=== PATIENT | female | born 1995 | race Two or more races ===

== ENCOUNTER 2025-02-04 16:18 | Inpatient (IN) | payer MEDICAID, OTHER ==
[~2025-02-04] VITALS: Ht 157.5 cm; Wt 124.7 kg
[2025-02-04] MEDS: LIDOCAINE 2%HCL (LOCAL ANESTH.) INJ 20ML MDV ONE (16:38)
[2025-02-04] MEDS: LIDOCAINE 2%HCL (LOCAL ANESTH.) INJ 10ml MDV ONE (16:38)
[2025-02-04] MEDS: KETOROLAC TROMETH 30 MG/ML 1ML VIAL ONE (16:38)
[2025-02-04] MEDS: DEXTROSE 10% 250 ML IV ONE (16:48)
--- NOTE | 2025-02-04 16:52 | ED.PDOC ---
NETWORK OPERATIONS LEAD HPI Comments 29 year old female presents to the ED via EMS with a chief complaint of s pontaneous onset today (02/04/25). Per EMS, patient had a spontaneous , mid- was present, patient was 40.5 weeks, placenta was not delivered. Upon ED arrival, patient was stable, was taken to L&D. Father states patient, P: 2, had no complications during . No other symptoms or modifying factors present at this time. Time Seen by MD: 16:09 Reviewed Notes: Medications Information Source: Patient, Emergency Med Personnel, Spouse Mode of Arrival: EMS Timing: Minutes Prehospital treatment: None Severity: Moderate Past Medical History PAST MEDICAL HISTORY: Denies Surgical History: Denies all surgeries PAINTINGS RESTORER History: No Pertinent PAINTINGS RESTORER History Family History Family History: Reviewed,noncontributory to illness, No family hx of Cancer, No family hx of DM, No family hx of Heart robert, No family hx of HTN, No family hx ofKidney robert, No family hx of Liver robert, No family hx of Lung robert, No family hx of Stroke Social History Smoker: Non-Smoker Alcohol: Denies ETOH Use Drugs: Denies Drug Use Lives In: Home Constitutional: denies: chills, diaphoresis, fatigue, fever, malaise, sweats, weakness, others EENTM: denies: blurred vision, double vision, ear bleeding, ear discharge, ear drainage, ear pain, ear ringing, eye pain, eye redness, hearing loss, mouth pain, mouth swelling, nasal discharge, nose bleeding, nose congestion, nose pain, photophobia, tearing, throat pain, throat swelling, voice changes, others Respiratory: denies: cough, hemoptysis, orthopnea, SOB at rest, shortness of breath, SOB with excertion, stridor, wheezing, others Cardiovascular: denies: chest pain, dizzy spells, diaphoresis, Dyspnea on exertion, edema, irregular heart beat, left arm pain, lightheadedness, palpitations, PND, syncope, others Gastrointestinal: denies: abdomen distended, abdominal pain, blood streaked bowels, constipated, diarrhea, dysphagia, difficulty swallowing, hematemesis, melena, nausea, poor appetite, poor fluid intake, rectal bleeding, rectal pain, vomiting, others Genitourinary: reports: others (spontaneous ); denies: abnormal vagina bleeding, burning, dyspareunia, dysuria, flank pain, frequency, hematuria, incontinence, pain, , vagina discharge, urgency Neurological: denies: dizziness, fainting, headache, left sided numbness, left sided weakness, numbness, paresthesia, pre-existing deficit, right sided numbness, right sided weakness, seizure, speech problems, tingling, tremors, weakness, others Musculoskeletal: denies: back pain, gout, joint pain, joint swelling, muscle pain, muscle stiffness, neck pain, others Integumetry: denies: bruises, change in color, change in hair/nails, dryness, laceration, lesions, lumps, rash, wounds, others Allergic/Immunocompromised: denies: Difficulty Healing, Frequent Infections, Hives, Itching, others Hematologic/Lymphatic: denies: anemia, blood clots, easy bleeding, easy bruising, swollen glands, others Endocrine: denies: excessive hunger, excessive sweating, excessive thirst, excessive urination, flushing, intolerance to cold, intolerance to heat, unexplained weight gain, unexplained weight loss, others Psychiatric: denies: anxiety, bipolar disorder, depression, hopeless, panic disorder, schizophrenia, sleepless, suicidal, others All Other Systems: Reviewed and Negative Was a procedure done? Was a procedure done?: No Time of 1ST Reevaluation: 16:39 Reevaluation 1ST: Unchanged Patient Education/Counseling: Diagnosis, Treatment Family Education/Counseling: Diagnosis, Treatment Critical Care Note Critical Care Time?: No Stability Stability form required: No I personally scribed for BAN LEAL MD ([email or web address]) on 02/04/25 at 16:52. Electronically submitted by Yee Avendano ([email or web address]). BAN LEAL MD Feb 04, 2025 16:52
[2025-02-04] MEDS ORDERED: LIDOCAINE 2%HCL (LOCAL ANESTH.) INJ 20ML MDV IJ PRN (17:00)
[2025-02-04 17:14] LABS: Hematocrit 37.8 % (36.0-46.0); Hemoglobin 12.3 g/dL (12.2-16.2); Mean Corpuscular Hemoglobin 27.7 pg (28.0-32.0); Mean Corpuscular Volume 85.3 fL (80.0-100.0); Nucleated Red Blood Cells % 0.1 %
--- NOTE | 2025-02-04 17:14 | DVHHP2 ---
OB CC & HPI Date Date of Admission: Feb 04, 2025 Patient Identification: : 2 Para: 2 EDC: Jan 30, 2025 EGA: 40.5wks Chief Complaints: Reason for admission: other (boa) History of Present Complaints 29yo now delivered at home with quality assurance assistant (Rey Morton LM, CPM) who resolved 14 minute shoulder dystocia (per Praveen HOPKINS report), pt brought in by EMS, placenta undelivered upon arrival. Care of was assumed by ED and seaming machine operator Dr. Bernal. Flakito Crews CNM assumed care of this pt. PNC with home midwives, Rey Morton LM, CPM and Isadora Adams LM, CPM. Pt reports uncomplicated . No records available. OB hx: x1, uncomplicated Past Medical History Cardiac: No pertinent Hx Pulmonary: No pertinent Hx Central Nervous System: No pertinent Hx GI: No pertinent Hx Hemotology/Oncology: No pertinent Hx Hepatobiliary: No pertinent Hx Psychiatric: No pertinent Hx Musculoskeletal: No pertinent Hx Rheumotologic: No pertinent Hx Infectious Disease: No peritnent Hx ENT: No pertinent Hx Renal/: No pertinent Hx Endocrine: No pertinent Hx Dermatology: No pertinent Hx Past Surgical History: No pertinent Hx OB History OB History Care: Good Care (per pt) Obstetrical Complications: None (per pt) Medical Complications: None (per pt) Allergies NKDA Home Meds PNV Family & Social History Family/Social History Past Family/Social History: denies Blood Type: Unknown Rubella: unknown RPR/VDRL: Unknown GBS Status: Unknown HBsAG: Unknown Review of Systems Constitutional: No symptom reported Ears, Nose, & Throat: No symptom reported Eyes: No symptom reported Pulmonary/Respiratory: No symptom reported Cardiovascular: No symptom reported Gastrointestinal: No symptom reported Genitourinary: No symptom reported Musculoskeletal: No symptom reported Skin: No symptom reported Psychiatric: No symptom reported Endocrine: No symptom reported Hemotologic/Lymphatic: No symptom reported OB Admission Exam Physical Exam Vitals: VSS, see CPN HEENT: TMs Normal, Fontanelles Normal, Nasal Mucosa Normal, Eyes non-injected, Oropharynx Normal, PERRLA, Moist Membranes, EOMI Abdomen: Non tender Extremities: Normal Pelvic Exam: placenta undelivered OB Plan Plan Admitting Diagnosis: BOA Plan: Expectant Management Other Plan: Pt taken to L&D for placenta delivery and perineal/fundal assessment. Visit Coding OBGYN Date of Service: Feb 04, 2025 Billing Provider: TRAVIS CREWS CNM NURSE OB Common Visit Codes: [id number] INP/OBS CARE (HIGH) TRAVIS CREWS CNM Feb 04, 2025 17:14
--- NOTE | 2025-02-04 17:25 | LDN2 ---
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 Pt brought in by EMS who had clamped and cut the cord (per Praveen LM report), placenta undelivered upon arrival, cord clamp not secured on the cord between pts legs. Pitocin 10u IM given by RN in right thigh. Intact 3-vessel cord placenta delivered spontaneously, [place], meconium stained. Cord blood collected from placenta and sent to lab since pt does not know her blood type. Pt wants to take placenta home, release consent signed. Patient had no anesthesia. Cervix/vagina inspected (intact) and no perineal/labial lacerations noted. Right periureteral abrasion noted, hemostatic, repaired not needed. Fundus at U, firm, midline, and light lochia. QBL 50ml. VSS. Count correct x2. Patient to care, stable. Visit Coding OBGYN Date of Service: Feb 04, 2025 Billing Provider: TRAVIS FRANZ CNM COMMAND POST SUPERINTENDENT Common Visit Codes: PROCEDURE ONLY COMMAND POST SUPERINTENDENT Procedure Codes: [id number] DEL INCLUDING (placenta delivery only and care) TRAVIS FRANZ CNM Feb 04, 2025 17:25
[2025-02-04 17:32] LABS: Albumin 3.8 g/dL (3.2-4.8); Anion Gap 13 (5-15); BUN/Creatinine Ratio 7.6 (10.0-20.0); Bilirubin, Total 0.3 mg/dL (0.2-1.0); Potassium 3.9 mmol/L (3.5-5.1); Sodium 137 mmol/L (136-145); Total Protein 6.1 g/dL (5.7-8.2)
[2025-02-04 17:40] LABS: Alanine Aminotransferase 145 U/L (7-40); Alkaline Phosphatase 261 U/L (46-116); Blood Urea Nitrogen 6 mg/dL (9-23); Calcium 8.7 mg/dL (8.7-10.4); Carbon Dioxide 16 mmol/L (20-31); Chloride 108 mmol/L (98-107); Glucose 135 mg/dL (74-106)
[2025-02-04 17:48] LABS: INR 0.98 (0.9-1.15); Partial Thromboplastin Time 27.6 SEC (24.5-34.5); Prothrombin Time 10.4 sec (9.3-11.8)
[2025-02-04] MEDS: KETOROLAC TROMETH 30 MG/ML 1ML VIAL IV ONE (18:34)
[2025-02-04 18:45] VITALS: BP 124/63; PULSE 65; RESP 16; TEMP 98.1; O2SAT 99
[2025-02-04] MEDS: ACETAMINOPHEN 325 MG TAB PO PRN (21:35)
[2025-02-04 21:38] LABS: Urine Protein, UAD 1+ (Negative)
[2025-02-04 21:40] LABS: Amphetamine Screen, Urine Neg (NEGATIVE); Barbiturate Scree,Urine Neg (NEGATIVE); Benzodiazephine Screen, Urine Neg (NEGATIVE); Cannabinoid Screen, Urine Neg (NEGATIVE); Cocaine Screen, Urine Neg (NEGATIVE); Opiate Scree,Urine Neg (NEGATIVE); Phencyclidine Screen, Urine Neg (NEGATIVE)
[2025-02-04] MEDS ORDERED: DOCU-94 PO (22:14)
[2025-02-04] MEDS ORDERED: PREN-96 PO (22:14)
[2025-02-04] MEDS ORDERED: IBUP-1456 PO (22:14)
[2025-02-04 23:10] VITALS: BP 105/56; PULSE 76; RESP 16; TEMP 98.2; O2SAT 99
--- NOTE | 2025-02-05 00:36 | DVHDS2 ---
Obstetrics Discharge Summary Obstetrics Discharge Summary Date of Admission: Feb 04, 2025 Date of Discharge: Feb 05, 2025 Reason For Admission: Others (BOA, placenta undelivered) Procedures: Mgmt of Obstetrics Compli (shoulder dystocia at home, resolved prior to arrival at hospital) Intrapartum Procedures: Spontaneous vaginal deliv Procedures: Hct/date: (02/05/25), Hgb/date: (02/05/25) Operative Complicat: None Discharge Diagnosis: Term -Delivered Discharge Information: Activity (as tolerated, no heavy lifting and nothing in the vagina for 6 weeks), Diet (Routine), Medications (Rx sent), Instructions (Routine), Discharge to (Home), Accompanied by (partner), Discarge date (02/05/25) Visit Coding OBGYN Date of Service: Feb 05, 2025 Billing Provider: TRAVIS FRANZ CNM FILES SUPERVISOR Common Visit Codes: [id number]-FME/OBS DISCH DAY <30MIN TRAVIS FRANZ CNM Feb 05, 2025 00:36
--- NOTE | 2025-02-05 00:36 | DVHPN2 ---
Progress Note Date Seen: Feb 05, 2025 Subjective S: bleeding is less, eating food without issues, denies lightheaded/dizziness, pain well controlled with oral medications, no concerns with urinating, passing flatus, no BM yet, ambulating well, pumping breast milk vital signs Vital Sign Date Time Temp Pulse Resp B/P (MAP) Pulse Ox O2 Delivery O2 Flow Rate FiO2 02/04/25 23:10 98.2 76 16 105/56 (72) 99 98.2 02/04/25 17:34 Room Air Total Intake and Output 02/04/25 02/04/25 02/05/25 15:00 23:00 07:00 Output Total 200 ml Balance -200 ml medications Current Medications Medications Dose Ordered Sig/Shiloh Route Start Time Stop Time Status Last Admin Dose Admin Witch Constance 1 pad PRN PRN TOP 02/04/25 17:00 Sodium Lauryl Sulfate 240 ml PRN PRN TOP 02/04/25 17:00 Benzocaine 1 applic PRN PRN TOP 02/04/25 17:00 Lidocaine HCl 20 ml ONCE PRN IJ 02/04/25 17:00 Ibuprofen 600 mg Q6HP PRN PO 02/04/25 23:00 Acetaminophen 650 mg Q6HPRN PRN PO 02/04/25 17:30 02/04/25 21:35 650 MG Prenat Multivit/ Bulk Station Agent/Iron/Folic Ac 1 DAILY PO 02/05/25 10:00 laboratory and microbiology Laboratory Tests 02/04/25 16:40 Test 02/04/25 16:40 Range/Units Serum Glucose 135 H 74-106 mg/dL Objective O: VSS Chest: heart sounds normal and lung sounds clear bilaterally Abd: soft, non-tender, fundus at U/firm/midline, active bowel sounds, no rebound or guarding Perineum: intact, no erythema/edema noted Ext: Non-tender, No edema, 2+ BLE DTRs Lochia: minimal See lab results Assessment/Plan A: 29yo now PPD#1 s/p vaginal delivery Rh+ Rubella immune Pumping breast milk, baby in NICU [facility] P: D/C home today Rx sent to pharmacy precautions and preeclampsia warning signs reviewed F/U with Praveen HOPKINS (OB provider) in 1 wk Plan discussed with: Patient Visit Coding OBGYN Date of Service: Feb 05, 2025 Billing Provider: TRAVIS FRANZ CNM TAG MARKER Common Visit Codes: [id number] INP/OBS CARE(LOW) TRAVIS FRANZ CNM Feb 05, 2025 00:36
[2025-02-05 03:00] VITALS: BP 133/73; PULSE 64; RESP 16; TEMP 98.5; O2SAT 98
[2025-02-05] MEDS: WITCH HAZEL-GLYCERIN PAD TOP PRN (03:04)
[2025-02-05] MEDS: DERMOPLAST 60ML BOTTLE TOP PRN (03:04)
[2025-02-05] MEDS: PHISODERM TOP SOLN 240ML BTL TOP PRN (03:04)
[2025-02-05] MEDS: IBUPROFEN 600 MG TAB PO PRN (03:05)
[2025-02-05 07:00] VITALS: BP 127/65; PULSE 64; RESP 16; TEMP 98; O2SAT 96
[2025-02-05 07:14] LABS: Hematocrit 29.0 % (36.0-46.0); Hemoglobin 10.0 g/dL (12.2-16.2); Mean Corpuscular Hemoglobin 29.0 pg (28.0-32.0); Mean Corpuscular Volume 83.9 fL (80.0-100.0); Nucleated Red Blood Cells % 0.0 %
[2025-02-05] MEDS: PRENATAL VITAMIN TAB PO SCH (10:15)
[2025-02-05 10:34] VITALS: BP 117/72; PULSE 80; RESP 15; TEMP 98.1; O2SAT 97
[2025-02-05] MEDS ORDERED: FERR30CA PO (10:38)
== END 2025-02-05 13:00 | disposition home or self-care (01) | DRG 560 ==
LOC: EDBD 16:18 → ER 16:18 → LDRP 16:20
PROVIDERS: ADMIT Obstetrics & Gynecology; ATTEND Obstetrics & Gynecology
PROC: 10E0XZZ Delivery of Products of Conception, External Approach (ICD-10-PCS; principal; 2025-02-04)
DX: Z39.0 Encounter for care and examination of mother immediately after delivery (principal); Z37.0 Single live birth; O73.0 Retained placenta without hemorrhage
CPT/HCPCS: 36415; 59414; 80053; 80307; 81001; 85025; 85610; 85730; 86703; 86762; 86780; 86803; 86850; 86900; 86901; 87340; 94760; 94762; 96372; 96374; G0378; J1885; J2003